=== PATIENT | female | born 1990 | race Two or more races ===

== ENCOUNTER 2022-04-03 08:07 | Inpatient (IN) | payer MEDICAID, OTHER ==
[~2022-04-03] VITALS: Ht 160 cm; Wt 59.0 kg
[2022-04-03] VITALS (12 sets, daily range): BP systolic 103–117; BP diastolic 62–87
[2022-04-03] MEDS ORDERED: ceFAZolin 2 GM in D5W 5% 100 ML IV ONE (09:15)
[2022-04-03] MEDS ORDERED: TERBUTALINE SULFATE 1 MG/ML 1ML VIAL SC ONE ×3 (09:15→13:00)
[2022-04-03] MEDS ORDERED: LACTATED RINGER'S 1,000 ML IV ONE (09:15)
[2022-04-03 09:47] LABS: Basophils # (auto) 0 10 ^3/uL (0-0.2); Basophils % (auto) 0.5 % (0.0-2.0); Eosinophils # (auto) 0 10 ^3/uL (0-0.8); Eosinophils % (auto) 0.2 % (0.0-7.0); Hematocrit 35.9 % (36.0-46.0); Lymphocytes # (auto) 1.3 10 ^3/uL (0.4-5.4); Mean Corpuscular Hgb Conc. 33.4 g/dL (32.0-36.0); Mean Corpuscular Volume 80.8 fL (80.0-100.0); Monocytes # (auto) 0.5 10 ^3/uL (0-1.3); Monocytes % (auto) 5.3 % (0.0-12.0); Neutrophils # (auto) 8.2 10 ^3/uL (1.6-8.6); Nucleated Red Blood Cells % 0.1 %; Red Blood Cells 4.44 10^6/uL (4.0-5.20); Red Cell Distribution Width 13.5 % (11.8-14.3); White Blood Cell 10.1 10^3/uL (4.4-10.8)
[2022-04-03 09:58] LABS: Urine Bacteria FEW /hpf (None Seen); Urine Blood Negative /uL (Negative); Urine Mucus FEW (None Seen); Urine Specific Gravity 1.018 (1.001-1.035); Urine WBC 2 /hpf (0 - 5)
[2022-04-03 10:14] LABS: Potassium 3.9 mmol/L (3.5-5.1)
[2022-04-03 10:17] LABS: Alcohol, Urine < 3.0 mg/dL (0-10); Amphetamine Screen, Urine NEGATIVE (NEGATIVE); Barbiturate Scree,Urine NEGATIVE (NEGATIVE); Benzodiazephine Screen, Urine NEGATIVE (NEGATIVE); Cannabinoid Screen, Urine NEGATIVE (NEGATIVE); Opiate Scree,Urine NEGATIVE (NEGATIVE); Phencyclidine Screen, Urine NEGATIVE (NEGATIVE)
[2022-04-03 10:19] LABS: Cocaine Screen, Urine NEGATIVE (NEGATIVE)
[2022-04-03 10:21] LABS: Albumin 2.5 g/dL (3.4-5.0); BUN/Creatinine Ratio 13.1; Bilirubin, Total 0.4 mg/dL (0.2-1.0); Calcium 8.4 mg/dL (8.5-10.1); Total Protein 6.5 g/dL (6.4-8.2)
[2022-04-03 10:44] LABS: INR 0.86 (0.9-1.15); Partial Thromboplastin Time 26.2 sec (24.6-33.4)
[2022-04-03] MEDS: LACTATED RINGER'S 1,000 ML IV SCH ×2 (12:05→22:40)
[2022-04-03] MEDS: SODIUM CITR/CITRIC ACID ORAL SOLN 30 ML PO SCH ×2 (12:55→13:55)
[2022-04-03] MEDS ORDERED: SODIUM CITR/CITRIC ACID ORAL SOLN 30 ML ONE (13:21)
[2022-04-03] MEDS ORDERED: TETRACAINE 1% INJ 2 ML VIAL IJ ONE (13:23)
[2022-04-03] MEDS ORDERED: SUCCINYLCHOLINE CHLORIDE 20 MG/ML 10ML VIAL IV ONE (13:24)
[2022-04-03] MEDS ORDERED: MORPHINE SULF PF 5 MG/10 ML VIAL ONE (13:26)
[2022-04-03] MEDS ORDERED: ONDANSETRON HCL 4 MG/2 ML VIAL ONE (14:51)
[2022-04-03] MEDS ORDERED: ePHEDrine SULFATE 50 MG/ML AMP ONE (14:51)
[2022-04-03] MEDS ORDERED: oxyTOCIN 10 UNIT/ML 10ML VIAL ONE (14:52)
[2022-04-03] MEDS ORDERED: ONDANSETRON HCL 4 MG/2 ML VIAL IV PRN ×2 (15:00→18:30)
[2022-04-03] MEDS ORDERED: diphenhdrAMINE HCL 50 MG/1 ML VL IV PRN (15:00)
[2022-04-03] MEDS ORDERED: DexAMETHasone SOD PHOS 10MG/1ML VIAL INJ IV PRN (15:00)
[2022-04-03] MEDS ORDERED: KETOROLAC TROMETH 30 MG/ML 1ML VIAL IV PRN ×2 (15:00→18:30)
[2022-04-03] MEDS ORDERED: NALOXONE HCL 0.4 MG/ML VIAL IV PRN (15:00)
[2022-04-03] MEDS ORDERED: NALBUPHINE HCL 10 MG/1ml INJECTION SUBCUT ONE (15:00)
[2022-04-03] MEDS ORDERED: HYDROmorphone HCL 2 MG/ML VL/or syr IV PRN (15:00)
[2022-04-03] MEDS ORDERED: HYDROmorphone HCL 2 MG/ML VL/or syr ONE (15:28)
[2022-04-03] MEDS ORDERED: GUM (CHEWING) 1 GUM CHEW CHEW ONE (18:30)
[2022-04-03] MEDS ORDERED: SIMETHICONE 80 MG CHEWABLE TABLET PO PRN (18:30)
[2022-04-03] MEDS ORDERED: ePHEDrine SULFATE 50 MG/ML AMP IV PRN (18:30)
[2022-04-03] MEDS ORDERED: HYDR-4902 PO (20:55)
[2022-04-03] MEDS ORDERED: DOCU100C10 PO (20:55)
[2022-04-03] MEDS ORDERED: IBU600T PO (20:55)
[2022-04-03] MEDS: DOCUSATE SOD 100 MG CAP PO SCH (22:39)
[2022-04-04] VITALS (18 sets, daily range): BP systolic 93–116; BP diastolic 53–83
[2022-04-04] MEDS: LACTATED RINGER'S 1,000 ML IV SCH (05:58)
[2022-04-04] MEDS: IBUPROFEN 600 MG TAB PO SCH ×2 (05:59→11:53)
[2022-04-04 06:03] LABS: Basophils # (auto) 0 10 ^3/uL (0-0.2); Basophils % (auto) 0.5 % (0.0-2.0); Eosinophils # (auto) 0 10 ^3/uL (0-0.8); Hematocrit 36.5 % (36.0-46.0); Hemoglobin 12.2 g/dL (12.2-16.2); Lymphocytes # (auto) 1.1 10 ^3/uL (0.4-5.4); Lymphocytes % (auto) 10.8 % (10.0-50.0); Mean Corpuscular Hemoglobin 27.2 pg (28.0-32.0); Mean Corpuscular Hgb Conc. 33.5 g/dL (32.0-36.0); Mean Corpuscular Volume 81.4 fL (80.0-100.0); Monocytes # (auto) 0.7 10 ^3/uL (0-1.3); Neutrophils # (auto) 8.4 10 ^3/uL (1.6-8.6); Neutrophils % (auto) 81.7 % (37.0-80.0); Nucleated Red Blood Cells % 0.1 %; Red Blood Cells 4.49 10^6/uL (4.0-5.20); Red Cell Distribution Width 13.5 % (11.8-14.3); White Blood Cell 10.2 10^3/uL (4.4-10.8)
[2022-04-04 06:06] LABS: RPR Non Reactive (Non Reactive)
[2022-04-04] MEDS ORDERED: HYDROcodone-ACET 5/325MG TAB PO PRN (17:00)
[2022-04-04] MEDS ORDERED: IBUPROFEN 600 MG TAB PO SCH (18:00)
[2022-04-04] MEDS: DOCUSATE SOD 100 MG CAP PO SCH (22:23)
[2022-04-04] MEDS: HYDROcodone-ACET 5/325MG TAB PO PRN (22:24)
[2022-04-05] MEDS ORDERED: IBUPROFEN 600 MG TAB PO SCH (01:30)
[2022-04-05 03:30] VITALS: BP 97/63
[2022-04-05 07:05] VITALS: BP 89/55
[2022-04-05] MEDS: HYDROcodone-ACET 5/325MG TAB PO PRN (10:58)
[2022-04-05 11:13] VITALS: BP 91/58
== END 2022-04-05 15:30 | disposition home or self-care (01) | DRG 539 ==
LOC: LDRP 08:07 → OBSVTOIN 09:04 → LDRP 09:05
PROVIDERS: ADMIT Obstetrics & Gynecology Obstetrics; ATTEND Obstetrics & Gynecology Obstetrics
PROC: 0UL70CZ Occlusion of Bilateral Fallopian Tubes with Extraluminal Device, Open Approach (ICD-10-PCS; 2022-04-03)
PROC: 10D00Z1 Extraction of Products of Conception, Low, Open Approach (ICD-10-PCS; principal; 2022-04-03 13:26)
DX: O99.62 Diseases of the digestive system complicating childbirth (principal); K21.9 Gastro-esophageal reflux disease without esophagitis; O34.211 Maternal care for low transverse scar from previous cesarean delivery; Z20.822 Contact with and (suspected) exposure to COVID-19; Z30.2 Encounter for sterilization; Z37.0 Single live birth; Z3A.38 38 weeks gestation of pregnancy
CPT/HCPCS: 36415; 59025; 80053; 80307; 81001; 81002; 85025; 85610; 85730; 86592; 86850; 86900; 86901; 94760; 94762; 96360; 96361; 96365; 96366; 96372; G0378; J0330; J0690; J2405; J2590; J7060